=== PATIENT | female | born 1945 | race Caucasian/White ===

== ENCOUNTER 2018-08-09 16:25 | Emergency (ER) | payer MEDICARE, OTHER, SELFPAY ==
[2018-08-09 16:28] VITALS: BP 160/90; PULSE 93; RESP 18; TEMP 36.7; O2SAT 91; BMI 54.1
--- NOTE | 2018-08-09 17:20 | RAD_ITS ---
STUDY: X-RAY CHEST REASON FOR EXAM: Female, 72 years old. Cough. TECHNIQUE: PA and lateral views of the chest. COMPARISON: None. FINDINGS: Right hemidiaphragm eventration associated atelectasis is present. Prominent interstitial markings are seen bilaterally likely due to low lung volume. There is no demonstrated pleural abnormality. Normal size heart. Normal mediastinum and stephanie. Normal visualized pulmonary arteries. There is atherosclerotic calcification of the aortic arch with tortuosity. There is demineralization of the osseous structures. Normal visualized ribs, clavicles, and shoulders. There is no demonstrated abnormality of the visualized soft tissue structures of the upper abdomen. RAD/Chest PA and Lateral IMPRESSION: Right hemidiaphragm eventration and low lung volume with associated atelectasis. No definitive focal airspace disease. Electronically Signed: Yan Oakley DO at 20:02 EST , Service support ,
[2018-08-09] MEDS: Ipratropium/Albuterol Sulfate 3 ML AMPUL.NEB INHALATION (17:43)
[2018-08-09 18:20] VITALS: PULSE 115; RESP 18
--- NOTE | 2018-08-09 18:27 | ED.RN ---
AFTER SEVERAL UNSUCCESSFUL IV ATTEMPTS BY ALEX SILVA; PAMELA SHAVER; AND ALEX OLEA; PHYSICIAN NOTIFIED THAT IV COULD NOT BE INITIATED AND LABS WERE NOT ABLE TO BE DRAWN. PHYSICIAN GAVE VERBAL ORDER FOR FLU SWAB AND XRAY, WITH FURTHER INTERVENTION TO FOLLOW PENDING RESULTS.
[2018-08-09 19:28] VITALS: PULSE 126; RESP 18; O2SAT 91
--- NOTE | 2018-08-09 19:28 | ED.VISSUMM ---
- ER Visit Summary Date of Service: 08/09/18 Chief Complaint: Cough History of Present Illness: The patient is a 72 F who is visiting from [place]. She reports that she has a cough began 3 days ago. Is productive of white/yellow sputum without blood. She complains subjective fever and chills. She reports that she feels congested and has a sore throat is 10 out of 10 severity. She reports that she has been wheezing. This is moderate in severity. It gets worse when she walks. Patient reports that she has had more moderate shortness of breath as well. She states that she is on 2 L of O2 at night. She is on 1 L during the day as needed. Patient is on Eliquis for atrial fibrillation. 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 Physical Examination: Vitals: Stable. Afebrile. General: Well-nourished and well-developed. Head: Normocephalic atraumatic. Neck: Supple, no lymphadenopathy. No JVD. Nontender. Cardiovascular: Regular rate and rhythm. No murmurs. Respiratory: No respiratory distress. Mild wheezing bilaterally with decreased air movement. Abdominal: Soft, nontender, nondistended, normal bowel sounds. No guarding, rebound, or peritoneal signs. Back: Nontender. Extremities: Nontender, no edema. Skin: Normal color, no rash. Neurologic: Alert and oriented ?3. Cranial nerves II through XII are intact. Normal strength and sensation. Psych: Normal affect. Test Results: Chest x-ray shows an elevated right hemidiaphragm and poor inspiration. No infiltrate. Influenza is negative. Emergency Department Course and Treatment: Multiple attempts were made at an IV without success. The patient refused any further attempts at an IV or a femoral stick for blood. She was given albuterol Atrovent aerosols. She was given prednisone and Zithromax p.o. She is resting comfortably and would like to go home. Treatment Plan: Patient will be discharged with a 5-day burst of prednisone, Zithromax, albuterol MDI. Instructed to follow-up her primary care physician in [place] in 3-5 days for another exam. Return to the emergency department for any worsening symptoms. Disposition: To home in improved and stable condition. Impression: 1. URI. 2. Bronchospasm. This note was generated with Dragon dictation software. It may contain incorrect words, spelling, and punctuation that were not noted in review of the chart prior to signing ED Disposition - Plan for ED Patient: Disposition: Home or Assisted Living Chief Complaint: Cold Sx Instructions: ED Upper Resp Infec Abx Tx Prescriptions: Albuterol Inhaler [Ventolin Hfa] 2 puff INHALATION Q4H PRN PRN #1 inhaler PRN Reason: Wheezing Azithromycin [Zithromax Z-Mynor] 250 mg PO UD #1 box Prednisone [Deltasone] 40 mg PO DAILY #10 tablet Referrals: Doctor,Your [STAFF PHYSICIAN] - 3-5 Days
[2018-08-09 19:34] VITALS: PULSE 120; RESP 18; O2SAT 91
[2018-08-09] MEDS: predniSONE 20 MG Tablet 60 MG PO (19:42)
[2018-08-09] MEDS: Azithromycin 250 MG Tablet 500 MG PO (19:42)
== END 2018-08-09 19:58 | disposition home or self-care (01) ==
PROVIDERS: Emergency Provider Emergency Medicine
DX: J06.9 Acute upper respiratory infection, unspecified (principal); J98.01 Acute bronchospasm; R19.7 Diarrhea, unspecified; K21.9 Gastro-esophageal reflux disease without esophagitis; E11.9 Type 2 diabetes mellitus without complications; I10 Essential (primary) hypertension; I48.91 Unspecified atrial fibrillation; G47.33 Obstructive sleep apnea (adult) (pediatric); Z86.69 Personal history of other diseases of the nervous system and sense organs; Z87.19 Personal history of other diseases of the digestive system; Z90.81 Acquired absence of spleen; Z90.49 Acquired absence of other specified parts of digestive tract; Z79.01 Long term (current) use of anticoagulants; Z79.4 Long term (current) use of insulin; Z79.84 Long term (current) use of oral hypoglycemic drugs; Z79.899 Other long term (current) drug therapy
CPT/HCPCS: 71046; 87804; 94640; 99283; A4216